=== PATIENT | female | born 1930 | race Caucasian/White ===

== ENCOUNTER → 2017-09-16 | Outpatient (CLI) | payer MEDICARE ==
[~2017-09-16] MED LIST: AMIO100T4 PO; AMIO200T42 PO; APIX2.5T PO; ASCO500T7 PO; ASCO500T8 PO; ATOR40TA PO; CALC1TAB PO; CALC1TAB76 PO; GLUC1TAB PO; GLUC500T11 PO; HYDR-3237 PO; LEVO137T2 PO; LEVO150C2 PO; LOSA100T6 PO; LOSA1TAB22 PO; MAGN400T7 PO; METF500T4 PO; METO100T5 PO; METO200T5 PO; METO25TA35 PO; PANT40TA5 PO; SPIR25TA3 PO
== END | disposition home or self-care (01) ==
LOC: WOUND 12:51
PROVIDERS: ATTEND Family Medicine
DX: E11.622 Type 2 diabetes mellitus with other skin ulcer (principal); L97.821 Non-pressure chronic ulcer of other part of left lower leg limited to breakdown of skin; I10 Essential (primary) hypertension; I48.91 Unspecified atrial fibrillation; E78.5 Hyperlipidemia, unspecified; E03.9 Hypothyroidism, unspecified; E66.9 Obesity, unspecified; Z72.89 Other problems related to lifestyle; Z95.0 Presence of cardiac pacemaker; Z85.3 Personal history of malignant neoplasm of breast
CPT/HCPCS: 10140; G0463; WOU0463

== ENCOUNTER → 2017-09-23 | Outpatient (CLI) | payer MEDICARE | END | disposition home or self-care (01) | LOC: WOUND 15:03 | PROVIDERS: ATTEND Family Medicine | DX: E11.622 Type 2 diabetes mellitus with other skin ulcer (principal); L97.821 Non-pressure chronic ulcer of other part of left lower leg limited to breakdown of skin; I48.91 Unspecified atrial fibrillation; E78.5 Hyperlipidemia, unspecified; E03.9 Hypothyroidism, unspecified; E66.9 Obesity, unspecified; I10 Essential (primary) hypertension; Z85.3 Personal history of malignant neoplasm of breast; Z95.0 Presence of cardiac pacemaker; Z68.41 Body mass index [BMI] 40.0-44.9, adult; Z72.89 Other problems related to lifestyle | CPT/HCPCS: G0463; WOU0463 ==

== ENCOUNTER → 2017-10-10 | Outpatient (CLI) | payer MEDICARE | END | disposition home or self-care (01) | LOC: WOUND 13:54 | PROVIDERS: ATTEND Internal Medicine | DX: E11.622 Type 2 diabetes mellitus with other skin ulcer (principal); L97.821 Non-pressure chronic ulcer of other part of left lower leg limited to breakdown of skin; E11.620 Type 2 diabetes mellitus with diabetic dermatitis; I10 Essential (primary) hypertension; E78.5 Hyperlipidemia, unspecified; I48.0 Paroxysmal atrial fibrillation; E66.9 Obesity, unspecified; Z85.3 Personal history of malignant neoplasm of breast; Z95.0 Presence of cardiac pacemaker; Z68.41 Body mass index [BMI] 40.0-44.9, adult; Z72.89 Other problems related to lifestyle; Z79.01 Long term (current) use of anticoagulants | CPT/HCPCS: G0463; WOU0463 ==

== ENCOUNTER → 2017-10-19 | Outpatient (CLI) | payer MEDICARE | END | disposition home or self-care (01) | LOC: CVU 12:53 | PROVIDERS: ATTEND Family Medicine | DX: I70.203 Unspecified atherosclerosis of native arteries of extremities, bilateral legs (principal); E11.621 Type 2 diabetes mellitus with foot ulcer; M79.89 Other specified soft tissue disorders; I48.91 Unspecified atrial fibrillation; I10 Essential (primary) hypertension; Z95.0 Presence of cardiac pacemaker | CPT/HCPCS: 93922; 93925; 93970 ==

== ENCOUNTER → 2017-12-06 | Outpatient (CLI) | payer MEDICARE ==
[~2017-12-06] MED LIST changes: +METO200T47 PO; -METO200T5 PO
== END | disposition home or self-care (01) ==
LOC: WOUND 14:34
PROVIDERS: ATTEND Nurse Practitioner Family
DX: E11.622 Type 2 diabetes mellitus with other skin ulcer (principal); L97.821 Non-pressure chronic ulcer of other part of left lower leg limited to breakdown of skin; I87.332 Chronic venous hypertension (idiopathic) with ulcer and inflammation of left lower extremity; E11.620 Type 2 diabetes mellitus with diabetic dermatitis; I10 Essential (primary) hypertension; E78.5 Hyperlipidemia, unspecified; I48.0 Paroxysmal atrial fibrillation; E66.9 Obesity, unspecified; Z85.3 Personal history of malignant neoplasm of breast; Z95.0 Presence of cardiac pacemaker; Z68.41 Body mass index [BMI] 40.0-44.9, adult; Z72.89 Other problems related to lifestyle; Z79.01 Long term (current) use of anticoagulants
CPT/HCPCS: 97597; G0463; WOU0463

== ENCOUNTER → 2017-12-23 | Outpatient (CLI) | payer MEDICARE | END | disposition home or self-care (01) | LOC: WOUND 14:02 | PROVIDERS: ATTEND Family Medicine | DX: I87.332 Chronic venous hypertension (idiopathic) with ulcer and inflammation of left lower extremity (principal); L97.821 Non-pressure chronic ulcer of other part of left lower leg limited to breakdown of skin; E11.622 Type 2 diabetes mellitus with other skin ulcer; L97.811 Non-pressure chronic ulcer of other part of right lower leg limited to breakdown of skin; I48.2 Chronic atrial fibrillation; I11.9 Hypertensive heart disease without heart failure; E78.5 Hyperlipidemia, unspecified; E66.9 Obesity, unspecified; I48.0 Paroxysmal atrial fibrillation; Z85.3 Personal history of malignant neoplasm of breast; Z68.41 Body mass index [BMI] 40.0-44.9, adult; Z72.89 Other problems related to lifestyle; Z95.0 Presence of cardiac pacemaker; Z79.01 Long term (current) use of anticoagulants | CPT/HCPCS: G0463; WOU0463 ==

== ENCOUNTER → 2017-12-30 | Outpatient (CLI) | payer MEDICARE | END | disposition home or self-care (01) | LOC: WOUND 14:07 | PROVIDERS: ATTEND Family Medicine | DX: I87.333 Chronic venous hypertension (idiopathic) with ulcer and inflammation of bilateral lower extremity (principal); L97.821 Non-pressure chronic ulcer of other part of left lower leg limited to breakdown of skin; E11.622 Type 2 diabetes mellitus with other skin ulcer; L97.811 Non-pressure chronic ulcer of other part of right lower leg limited to breakdown of skin; I48.2 Chronic atrial fibrillation; I11.9 Hypertensive heart disease without heart failure; E03.9 Hypothyroidism, unspecified; E78.5 Hyperlipidemia, unspecified; E66.9 Obesity, unspecified; Z79.01 Long term (current) use of anticoagulants; Z85.3 Personal history of malignant neoplasm of breast; Z95.0 Presence of cardiac pacemaker; Z98.49 Cataract extraction status, unspecified eye; Z68.41 Body mass index [BMI] 40.0-44.9, adult | CPT/HCPCS: G0463; WOU0463 ==

== ENCOUNTER → 2018-01-13 | Outpatient (CLI) | payer MEDICARE | END | disposition home or self-care (01) | LOC: WOUND 13:55 | PROVIDERS: ATTEND Family Medicine | DX: I87.332 Chronic venous hypertension (idiopathic) with ulcer and inflammation of left lower extremity (principal); L97.821 Non-pressure chronic ulcer of other part of left lower leg limited to breakdown of skin; I87.301 Chronic venous hypertension (idiopathic) without complications of right lower extremity; I48.2 Chronic atrial fibrillation; E78.5 Hyperlipidemia, unspecified; I11.9 Hypertensive heart disease without heart failure; E66.9 Obesity, unspecified; E11.36 Type 2 diabetes mellitus with diabetic cataract; Z79.01 Long term (current) use of anticoagulants; Z95.0 Presence of cardiac pacemaker; Z85.3 Personal history of malignant neoplasm of breast; Z68.41 Body mass index [BMI] 40.0-44.9, adult | CPT/HCPCS: G0463; WOU0463 ==

== ENCOUNTER 2018-09-04 15:04 | Inpatient (IN) | payer MEDICARE ==
[~2018-09-04] VITALS: Ht 167.6 cm; Wt 92.1 kg
[~2018-09-04 15:04] MED LIST changes: -LOSA100T6 PO; +LOSA100T7 PO; +METF500T17 PO; -METF500T4 PO; -SPIR25TA3 PO; +SPIR25TA5 PO
[2018-09-04] MEDS ORDERED: ASPIRIN 81 MG TABLET CHEW PO ONE (15:30)
[2018-09-04 15:58] LABS: ALANINE AMINOTRANSFERASE 205 U/L (12-78); ALBUMIN 3.6 g/dL (3.4-5.0); ANION GAP 8 mmol/L (5-15); CHLORIDE 101 mmol/L (98-107); CREATININE 1.57 mg/dL (0.55-1.02)
[2018-09-04 16:02] LABS: ALKALINE PHOSPHATASE 91 U/L (45-117); BILIRUBIN,TOTAL 0.9 mg/dL (0.2-1.0); TOTAL PROTEIN 7.2 g/dL (6.4-8.2)
[2018-09-04 16:08] LABS: BASOPHILS # (AUTO) 0.03 x10^3/uL (0-0.1); BASOPHILS % (AUTO) 0 % (0-1); EOSINOPHILS # (AUTO) 0.12 x10^3/uL (0-0.4); EOSINOPHILS % (AUTO) 1 % (1-7); LYMPHOCYTES # (AUTO) 1.53 x10^3/uL (1-3.4); LYMPHOCYTES % (AUTO) 18 % (22-44); MD NO; MEAN CORPUSCULAR HEMOGLOBIN 29.9 pg (27.0-34.8); MEAN CORPUSCULAR VOLUME 90.7 fL (80-100); MEAN PLATELET VOLUME 9.1 fL (7.4-10.4); MONOCYTES # (AUTO) 0.48 x10^3/uL (0.2-0.8); MONOCYTES % (AUTO) 6 % (2-9); NEUTROPHILS # (AUTO) 6.51 x10^3/uL (1.8-6.8); NEUTROPHILS % (AUTO) 75 % (42-75); PLATELET COUNT 351 x10^3/uL (130-400); RED BLOOD COUNT 4.76 x10^6/uL (3.82-5.3); RED CELL DISTRIBUTION WIDTH 14.7 % (9.6-15.2)
[2018-09-04] MEDS ORDERED: MAGN400T7 PO (16:18)
[2018-09-04] MEDS ORDERED: [UNRECOGNIZED DRUG - OTHER] PO (16:18)
[2018-09-04] MEDS ORDERED: PROP80CA3 PO (16:18)
[2018-09-04] MEDS ORDERED: DILTIAZEM 5 MG/ML, 5ML ONE (16:30)
[2018-09-04] MEDS ORDERED: DILTIAZEM 5 MG/ML, 5ML IVPush ONE (16:30)
[2018-09-04 17:04] LABS: FREE T4 (FREE THYROXINE) 1.49 ng/dL (0.76-1.46); THYROID STIMULATING HORMONE 10.7 mIU/L (0.358-3.740)
[2018-09-04] MEDS ORDERED: morphine SULFATE 10 MG/ML, 1ML IVPush PRN (17:30)
[2018-09-04] MEDS ORDERED: ONDANSETRON 2MG/ML, 2ML IVPush PRN (17:30)
[2018-09-04] MEDS ORDERED: hydrALAzine 20 MG/ML, 1ML IVPush PRN (17:30)
[2018-09-04] MEDS ORDERED: TEMAZEPAM 15 MG CAPSULE PO PRN (17:30)
[2018-09-04] MEDS ORDERED: ACETAMINOPHEN 325 MG TABLET PO PRN (17:30)
[2018-09-04 17:39] VITALS: BP 125/82
[2018-09-04] MEDS: INSULIN LISPRO 100 UNITS/ML, PEN SQ-INSULIN SCH ×2 (17:54→21:00)
[2018-09-04] MEDS: FUROSEMIDE 20 MG/2 ML IV SCH (17:55)
[2018-09-04] MEDS: DILTIAZEM 125 MG in SODIUM CHLORIDE 0.9% 100 ML IV SCH (18:26)
[2018-09-04] MEDS ORDERED: FLU VAC QS18-19(4YR UP)CEL/PF 0.5ML IM-VACC ONE (18:30)
[2018-09-04 18:51] LABS: HEMOGLOBIN A1C 7.5 % (4.2-6.3)
[2018-09-04 19:51] LABS: MICROSCOPIC AUTO
[2018-09-04 19:55] LABS: CULTURE INDICATED? YES
[2018-09-04 21:42] VITALS: BP 125/86
[2018-09-04] MEDS: MAGNESIUM OXIDE 400 MG TABLET PO SCH (21:51)
[2018-09-04] MEDS: ATORVASTATIN 40 MG TABLET PO SCH (21:51)
[2018-09-04] MEDS: APIXABAN 2.5 MG TABLET PO SCH (21:52)
[2018-09-04 22:30] LABS: TROPONIN I 0.074 ng/mL (0.000-0.045)
[2018-09-05 01:39] VITALS: BP 99/63
[2018-09-05 04:57] LABS: ALANINE AMINOTRANSFERASE 180 U/L (12-78); ALBUMIN 3.4 g/dL (3.4-5.0); ANION GAP 8 mmol/L (5-15); CALCIUM 8.7 mg/dL (8.5-10.1); CHLORIDE 101 mmol/L (98-107); CREATININE 1.54 mg/dL (0.55-1.02)
[2018-09-05 05:02] LABS: ALKALINE PHOSPHATASE 81 U/L (45-117); BILIRUBIN,TOTAL 0.7 mg/dL (0.2-1.0); TOTAL PROTEIN 6.5 g/dL (6.4-8.2); TROPONIN I 0.071 ng/mL (0.000-0.045)
[2018-09-05] MEDS: LEVOTHYROXINE 137 MCG TABLET PO SCH (06:04)
[2018-09-05] MEDS: DILTIAZEM 125 MG in SODIUM CHLORIDE 0.9% 100 ML IV SCH (06:04)
[2018-09-05 06:20] LABS: BASOPHILS # (AUTO) 0.04 x10^3/uL (0-0.1); BASOPHILS % (AUTO) 1 % (0-1); EOSINOPHILS # (AUTO) 0.23 x10^3/uL (0-0.4); EOSINOPHILS % (AUTO) 3 % (1-7); LYMPHOCYTES % (AUTO) 24 % (22-44); MD NO; MEAN CORPUSCULAR HEMOGLOBIN 29.7 pg (27.0-34.8); MEAN CORPUSCULAR HGB CONC 32.8 g/dL (32.4-35.8); MEAN CORPUSCULAR VOLUME 90.4 fL (80-100); MEAN PLATELET VOLUME 9.3 fL (7.4-10.4); MONOCYTES % (AUTO) 6 % (2-9); NEUTROPHILS # (AUTO) 5.14 x10^3/uL (1.8-6.8); NEUTROPHILS % (AUTO) 66 % (42-75); PLATELET COUNT 329 x10^3/uL (130-400); RED BLOOD COUNT 4.46 x10^6/uL (3.82-5.3); RED CELL DISTRIBUTION WIDTH 14.9 % (9.6-15.2)
[2018-09-05] MEDS: INSULIN LISPRO 100 UNITS/ML, PEN SQ-INSULIN SCH ×4 (06:56→21:29)
[2018-09-05 07:29] VITALS: BP 106/74
[2018-09-05] MEDS: LOSARTAN 50MG TABLET PO SCH (07:51)
[2018-09-05] MEDS: APIXABAN 2.5 MG TABLET PO SCH ×2 (07:51→19:28)
[2018-09-05] MEDS: MAGNESIUM OXIDE 400 MG TABLET PO SCH ×2 (07:51→21:22)
[2018-09-05] MEDS: POTASSIUM CHLORIDE 20 MEQ TAB.ER.PRT PO SCH (07:51)
[2018-09-05] MEDS: FUROSEMIDE 20 MG/2 ML IV SCH ×2 (07:52→17:30)
[2018-09-05] MEDS: DILTIAZEM 60 MG TABLET PO SCH ×3 (09:42→21:25)
[2018-09-05] MEDS: CEFTRIAXONE PMX 1GM/50ML 50 ML IV SCH (09:58)
[2018-09-05 12:18] VITALS: BP 107/66
[2018-09-05] MEDS ORDERED: POTASSIUM CHLORIDE 20 MEQ TAB.ER.PRT PO ONE (17:00)
[2018-09-05 17:29] VITALS: BP 116/75
[2018-09-05 20:23] VITALS: BP 94/61
[2018-09-05] MEDS: ATORVASTATIN 40 MG TABLET PO SCH (21:22)
[2018-09-05 21:25] VITALS: BP 109/74
[2018-09-06 01:38] VITALS: BP 109/75
[2018-09-06] MEDS: DILTIAZEM 60 MG TABLET PO SCH ×4 (02:01→22:57)
[2018-09-06] MEDS: LEVOTHYROXINE 137 MCG TABLET PO SCH (05:34)
[2018-09-06 05:48] LABS: ALBUMIN 3.3 g/dL (3.4-5.0); ANION GAP 7 mmol/L (5-15); CALCIUM 8.6 mg/dL (8.5-10.1); CHLORIDE 102 mmol/L (98-107)
[2018-09-06 05:52] LABS: ALANINE AMINOTRANSFERASE 177 U/L (12-78); ALKALINE PHOSPHATASE 76 U/L (45-117); BILIRUBIN,TOTAL 0.7 mg/dL (0.2-1.0); CREATININE 1.52 mg/dL (0.55-1.02); TOTAL PROTEIN 6.6 g/dL (6.4-8.2)
[2018-09-06] MEDS: INSULIN LISPRO 100 UNITS/ML, PEN SQ-INSULIN SCH ×4 (07:00→20:27)
[2018-09-06 07:08] VITALS: BP 101/67
[2018-09-06] MEDS: APIXABAN 2.5 MG TABLET PO SCH (07:42)
[2018-09-06] MEDS: MAGNESIUM OXIDE 400 MG TABLET PO SCH ×2 (07:42→20:01)
[2018-09-06] MEDS: PANTOPROZOLE 40MG TABLET PO SCH (07:42)
[2018-09-06] MEDS: POTASSIUM CHLORIDE 20 MEQ TAB.ER.PRT PO SCH ×2 (07:42→09:29)
[2018-09-06] MEDS: FUROSEMIDE 20 MG/2 ML IV SCH (07:42)
[2018-09-06] MEDS: CEFTRIAXONE PMX 1GM/50ML 50 ML IV SCH (09:29)
[2018-09-06] MEDS: LOSARTAN 50MG TABLET PO SCH (11:00)
[2018-09-06 12:03] VITALS: BP 95/60
[2018-09-06] MEDS ORDERED: DIGOXIN 0.25 MG TABLET PO SCH (12:30)
[2018-09-06 16:56] VITALS: BP 110/73
[2018-09-06] MEDS ORDERED: FUROSEMIDE 40 MG TABLET PO SCH (17:00)
[2018-09-06] MEDS: ATORVASTATIN 40 MG TABLET PO SCH (20:01)
[2018-09-06 20:30] VITALS: BP 93/66
[2018-09-07 01:54] VITALS: BP 101/62
[2018-09-07] MEDS: DILTIAZEM 60 MG TABLET PO SCH ×3 (05:02→18:02)
[2018-09-07] MEDS: LEVOTHYROXINE 137 MCG TABLET PO SCH (05:02)
[2018-09-07 05:14] LABS: ANION GAP 7 mmol/L (5-15); CALCIUM 8.9 mg/dL (8.5-10.1); CHLORIDE 102 mmol/L (98-107); CREATININE 1.49 mg/dL (0.55-1.02)
[2018-09-07] MEDS: INSULIN LISPRO 100 UNITS/ML, PEN SQ-INSULIN SCH ×4 (07:00→21:00)
[2018-09-07 07:23] VITALS: BP 109/76
[2018-09-07] MEDS ORDERED: MIDAZOLAM 1 MG/ML, 5ML ONE (07:55)
[2018-09-07] MEDS ORDERED: FENTANYL PF 100 MCG/2ML ONE (07:55)
[2018-09-07] MEDS: CEFTRIAXONE PMX 1GM/50ML 50 ML IV SCH (07:58)
[2018-09-07] MEDS ORDERED: LIDOCAINE 1%, 20ML ONE ×2 (10:33→10:34)
[2018-09-07] MEDS ORDERED: LIDOCAINE-MPF 1%, 5ML ONE (10:33)
[2018-09-07] MEDS: DIGOXIN 0.125 MG TABLET PO SCH (12:06)
[2018-09-07] MEDS: LOSARTAN 25MG TABLET PO SCH (12:06)
[2018-09-07] MEDS: FUROSEMIDE 40 MG TABLET PO SCH (12:06)
[2018-09-07] MEDS: POTASSIUM CHLORIDE 20 MEQ TAB.ER.PRT PO SCH (12:07)
[2018-09-07] MEDS: MAGNESIUM OXIDE 400 MG TABLET PO SCH ×2 (12:07→20:53)
[2018-09-07 12:08] VITALS: BP 126/72
[2018-09-07 16:29] VITALS: BP 106/72
[2018-09-07 19:59] VITALS: BP 101/69
[2018-09-07] MEDS: ATORVASTATIN 40 MG TABLET PO SCH (20:53)
[2018-09-08 00:19] VITALS: BP 114/78
[2018-09-08] MEDS: DILTIAZEM 60 MG TABLET PO SCH ×3 (00:23→12:43)
[2018-09-08 04:37] LABS: BASOPHILS # (AUTO) 0.04 x10^3/uL (0-0.1); BASOPHILS % (AUTO) 1 % (0-1); EOSINOPHILS % (AUTO) 5 % (1-7); LYMPHOCYTES # (AUTO) 1.59 x10^3/uL (1-3.4); LYMPHOCYTES % (AUTO) 19 % (22-44); MD NO; MEAN CORPUSCULAR HEMOGLOBIN 29.3 pg (27.0-34.8); MEAN CORPUSCULAR VOLUME 91.6 fL (80-100); MEAN PLATELET VOLUME 8.9 fL (7.4-10.4); MONOCYTES # (AUTO) 0.52 x10^3/uL (0.2-0.8); MONOCYTES % (AUTO) 6 % (2-9); NEUTROPHILS # (AUTO) 5.74 x10^3/uL (1.8-6.8); NEUTROPHILS % (AUTO) 69 % (42-75); PLATELET COUNT 297 x10^3/uL (130-400); RED BLOOD COUNT 4.51 x10^6/uL (3.82-5.3)
[2018-09-08 04:48] LABS: ALANINE AMINOTRANSFERASE 157 U/L (12-78); ALBUMIN 3.1 g/dL (3.4-5.0); ANION GAP 4 mmol/L (5-15); CALCIUM 8.6 mg/dL (8.5-10.1); CHLORIDE 103 mmol/L (98-107)
[2018-09-08 04:51] LABS: ALKALINE PHOSPHATASE 76 U/L (45-117); BILIRUBIN,TOTAL 0.5 mg/dL (0.2-1.0); CREATININE 1.34 mg/dL (0.55-1.02); TOTAL PROTEIN 6.3 g/dL (6.4-8.2)
[2018-09-08] MEDS: LEVOTHYROXINE 137 MCG TABLET PO SCH (06:05)
[2018-09-08] MEDS: INSULIN LISPRO 100 UNITS/ML, PEN SQ-INSULIN SCH ×2 (07:00→11:00)
[2018-09-08 07:07] VITALS: BP 102/69
[2018-09-08] MEDS: CEFTRIAXONE PMX 1GM/50ML 50 ML IV SCH (08:01)
[2018-09-08] MEDS: DIGOXIN 0.125 MG TABLET PO SCH (08:27)
[2018-09-08] MEDS: MAGNESIUM OXIDE 400 MG TABLET PO SCH (08:27)
[2018-09-08] MEDS: FUROSEMIDE 40 MG TABLET PO SCH (08:27)
[2018-09-08] MEDS: LOSARTAN 25MG TABLET PO SCH (08:27)
[2018-09-08] MEDS: POTASSIUM CHLORIDE 20 MEQ TAB.ER.PRT PO SCH (08:28)
[2018-09-08] MEDS: PANTOPROZOLE 40MG TABLET PO SCH (08:28)
[2018-09-08] MEDS ORDERED: ACET325T14 PO (09:53)
[2018-09-08] MEDS ORDERED: LEVO75TA5 PO (09:53)
[2018-09-08] MEDS ORDERED: DIGO125T PO (09:53)
[2018-09-08] MEDS ORDERED: FURO40TA6 PO (09:53)
[2018-09-08] MEDS ORDERED: DILT240C2 PO (09:53)
[2018-09-08] MEDS ORDERED: POTA20PA31 PO (09:53)
[2018-09-08 13:42] VITALS: BP 107/71
== END 2018-09-08 16:12 | DRG 273 ==
LOC: SUATTDRO 16:42 → ED 17:22 → 5SO 17:24
PROVIDERS: ADMIT Internal Medicine; ATTEND Internal Medicine
PROC: 02583ZZ Destruction of Conduction Mechanism, Percutaneous Approach (ICD-10-PCS; principal; 2018-09-07)
DX: I48.92 Unspecified atrial flutter (principal); I50.33 Acute on chronic diastolic (congestive) heart failure; I13.0 Hypertensive heart and chronic kidney disease with heart failure and stage 1 through stage 4 chronic kidney disease, or unspecified chronic kidney disease; J96.10 Chronic respiratory failure, unspecified whether with hypoxia or hypercapnia; N39.0 Urinary tract infection, site not specified; D68.69 Other thrombophilia; I44.2 Atrioventricular block, complete; E66.01 Morbid (severe) obesity due to excess calories; N18.3 Chronic kidney disease, stage 3 (moderate); K59.00 Constipation, unspecified; E78.5 Hyperlipidemia, unspecified; E11.22 Type 2 diabetes mellitus with diabetic chronic kidney disease; K21.9 Gastro-esophageal reflux disease without esophagitis; K76.1 Chronic passive congestion of liver; E03.9 Hypothyroidism, unspecified; Z79.01 Long term (current) use of anticoagulants; Z68.32 Body mass index [BMI] 32.0-32.9, adult; Z91.040 Latex allergy status; Z88.8 Allergy status to other drugs, medicaments and biological substances; Z91.048 Other nonmedicinal substance allergy status; Z79.890 Hormone replacement therapy; Z87.891 Personal history of nicotine dependence; Z99.81 Dependence on supplemental oxygen; Z90.89 Acquired absence of other organs
CPT/HCPCS: 36415; 71046; 76770; 80048; 80053; 80162; 81001; 82962; 83036; 83735; 83880; 84100; 84439; 84443; 84481; 84484; 85025; 87040; 87086; 90674; 93005; 93306; 93650; 99291; C1894; G0378; J0696; J2250; J3010; J3490; C2630; J1815; J1940

== ENCOUNTER 2018-11-29 15:27 | Inpatient (IN) | payer MEDICARE ==
[~2018-11-29] VITALS: Ht 167.6 cm; Wt 101.5 kg
[~2018-11-29 15:27] MED LIST changes: +ACET325T14 PO; +DIGO125T PO; +DILT240C2 PO; +FURO40TA6 PO; -GLUC1TAB PO; +LEVO75TA5 PO; +LOSA100T14 PO; -LOSA100T7 PO; +POTA20PA31 PO; +PROP80CA3 PO; +[UNRECOGNIZED DRUG - CODE] PO; +[UNRECOGNIZED DRUG - OTHER] PO
[2018-11-29] MEDS ORDERED: ASPIRIN 81 MG TABLET CHEW PO ONE (16:00)
[2018-11-29] MEDS ORDERED: ASPIRIN 81 MG TABLET CHEW ONE (16:14)
[2018-11-29 16:16] LABS: BASOPHILS # (AUTO) 0.05 x10^3/uL (0-0.1); BASOPHILS % (AUTO) 1 % (0-1); EOSINOPHILS # (AUTO) 0.23 x10^3/uL (0-0.4); EOSINOPHILS % (AUTO) 3 % (1-7); LYMPHOCYTES # (AUTO) 1.39 x10^3/uL (1-3.4); LYMPHOCYTES % (AUTO) 17 % (22-44); MD NO; MEAN CORPUSCULAR HEMOGLOBIN 29.4 pg (27.0-34.8); MEAN CORPUSCULAR HGB CONC 32.3 g/dL (32.4-35.8); MEAN PLATELET VOLUME 8.5 fL (7.4-10.4); MONOCYTES % (AUTO) 5 % (2-9); NEUTROPHILS # (AUTO) 6.15 x10^3/uL (1.8-6.8); NEUTROPHILS % (AUTO) 75 % (42-75); PLATELET COUNT 363 x10^3/uL (130-400); RED CELL DISTRIBUTION WIDTH 15.8 % (9.6-15.2)
--- NOTE | 2018-11-29 16:23 | NUR ---
DR ALVARADO AT BEDSIDE. PT ASSESSMENT REVIEWED, QUESTIONS ANSWERED. ORDERS REC'D.
[2018-11-29] MEDS ORDERED: SULF-169 PO (16:28)
[2018-11-29 16:30] LABS: ALBUMIN 3.7 g/dL (3.4-5.0); ANION GAP 5 mmol/L (5-15); CALCIUM 9.2 mg/dL (8.5-10.1); CHLORIDE 105 mmol/L (98-107); CREATININE 1.01 mg/dL (0.55-1.02)
[2018-11-29] MEDS ORDERED: FUROSEMIDE 40 MG/4 ML IV ONE (16:30)
[2018-11-29 17:09] LABS: MICROSCOPIC INDICATED
[2018-11-29 17:22] LABS: CULTURE INDICATED? NO
[2018-11-29] MEDS ORDERED: FUROSEMIDE 40 MG/4 ML ONE (17:28)
[2018-11-29] MEDS ORDERED: NITROGLYCERIN 0.4 MG BOTTLE (25 TABS) SL PRN (17:30)
[2018-11-29] MEDS ORDERED: GLUCAGON 1 MG IM PRN (17:30)
[2018-11-29] MEDS ORDERED: TRAZODONE 50MG TABLET PO PRN (17:30)
[2018-11-29] MEDS ORDERED: ONDANSETRON 2MG/ML, 2ML IVPush PRN (17:30)
[2018-11-29] MEDS ORDERED: DEXTROSE 50%, 50ML SYRINGE IVPush PRN (17:30)
[2018-11-29] MEDS: FUROSEMIDE 40 MG/4 ML IV SCH (17:30)
[2018-11-29] MEDS ORDERED: DEXTROSE 4 GM TAB.CHEW PO PRN (17:30)
[2018-11-29] MEDS: INSULIN LISPRO 100 UNITS/ML, PEN SQ-INSULIN SCH ×2 (17:30→21:00)
[2018-11-29] MEDS ORDERED: NITROGLYCERIN 0.4 MG/SPRAY SL PRN (17:30)
--- NOTE | 2018-11-29 17:54 | NUR ---
PURE WICK CATH PLACED. PT TOLLERATED WELL.
--- NOTE | 2018-11-29 17:57 | NUR ---
DIET TRAY ORDERED AND DIET OFFICE NOTIFIED
--- NOTE | 2018-11-29 18:55 | NUR ---
PT CONSUMED 50% OF HER DINNER. PT TRANSFERED TO HOSPITAL BED VIA SLIDE BOARD. WAFFLE AIR MATTRESS ON BED AND PUMPED TO 32 PUMPS. PT REQUESTED THAT MATTRESS NOT BE INFLATTED MORE THAN 32 PUMPS STATING "IT'S TOO LUMPY" EXTENTION TUBBING PLACED ON 02 FOR PT COMFORT. BED PUT INTO CHAIR POSITION PER PT REQUEST. ADDITIONAL PILLOWS PROVIDED PER PT REQUEST. CALL LIGHT W/I REACH, DAUGHTER AT BEDSIDE.
[2018-11-29] MEDS: ATORVASTATIN 40 MG TABLET PO SCH (22:42)
[2018-11-29] MEDS: SULFAMETH./TRIMETHOPRIM DS 800MG/160MG TABLET PO SCH (22:42)
[2018-11-29] MEDS: APIXABAN 2.5 MG TABLET PO SCH (22:43)
[2018-11-29] MEDS: SODIUM CHLORIDE FLUSH 10ML SYR IVF SCH (22:43)
[2018-11-29 22:54] VITALS: BP 156/82
[2018-11-29 23:01] LABS: TROPONIN I 0.103 ng/mL (0.000-0.045)
[2018-11-30 01:09] VITALS: BP 133/74
[2018-11-30 06:01] LABS: BASOPHILS # (AUTO) 0.05 x10^3/uL (0-0.1); BASOPHILS % (AUTO) 1 % (0-1); EOSINOPHILS # (AUTO) 0.29 x10^3/uL (0-0.4); EOSINOPHILS % (AUTO) 4 % (1-7); LYMPHOCYTES # (AUTO) 1.95 x10^3/uL (1-3.4); LYMPHOCYTES % (AUTO) 24 % (22-44); MD NO; MEAN CORPUSCULAR HEMOGLOBIN 29.1 pg (27.0-34.8); MEAN CORPUSCULAR HGB CONC 32.2 g/dL (32.4-35.8); MEAN CORPUSCULAR VOLUME 90.3 fL (80-100); MEAN PLATELET VOLUME 8.2 fL (7.4-10.4); MONOCYTES # (AUTO) 0.53 x10^3/uL (0.2-0.8); MONOCYTES % (AUTO) 7 % (2-9); NEUTROPHILS # (AUTO) 5.42 x10^3/uL (1.8-6.8); NEUTROPHILS % (AUTO) 66 % (42-75); PLATELET COUNT 346 x10^3/uL (130-400); RED BLOOD COUNT 4.33 x10^6/uL (3.82-5.3); RED CELL DISTRIBUTION WIDTH 15.9 % (9.6-15.2)
[2018-11-30 06:13] LABS: ANION GAP 5 mmol/L (5-15); CALCIUM 8.9 mg/dL (8.5-10.1); CHLORIDE 103 mmol/L (98-107)
[2018-11-30 06:21] LABS: CREATININE 1.01 mg/dL (0.55-1.02); TROPONIN I 0.113 ng/mL (0.000-0.045)
[2018-11-30 06:46] LABS: HEMOGLOBIN A1C 6.2 % (4.2-6.3)
[2018-11-30 07:00] VITALS: BP 146/84
[2018-11-30] MEDS: INSULIN LISPRO 100 UNITS/ML, PEN SQ-INSULIN SCH ×4 (07:33→21:00)
[2018-11-30] MEDS: SULFAMETH./TRIMETHOPRIM DS 800MG/160MG TABLET PO SCH ×2 (08:38→21:13)
[2018-11-30] MEDS: APIXABAN 2.5 MG TABLET PO SCH ×2 (08:38→21:13)
[2018-11-30] MEDS: FUROSEMIDE 40 MG/4 ML IV SCH ×2 (08:39→17:34)
[2018-11-30] MEDS: SODIUM CHLORIDE FLUSH 10ML SYR IVF SCH ×2 (08:39→21:13)
[2018-11-30] MEDS ORDERED: LEVOTHYROXINE 150 MCG TABLET PO SCH (09:00)
[2018-11-30 11:38] LABS: TROPONIN I 0.117 ng/mL (0.000-0.045)
[2018-11-30 12:45] VITALS: BP 139/87
[2018-11-30 17:46] LABS: TROPONIN I 0.112 ng/mL (0.000-0.045)
[2018-11-30 20:00] VITALS: BP 156/92
[2018-11-30] MEDS: ATORVASTATIN 40 MG TABLET PO SCH (21:13)
[2018-11-30] MEDS: ACETAMINOPHEN 325 MG TABLET PO PRN (21:16)
[2018-12-01 01:30] VITALS: BP 135/84
[2018-12-01 05:22] LABS: ANION GAP 3 mmol/L (5-15); CALCIUM 8.7 mg/dL (8.5-10.1); CHLORIDE 103 mmol/L (98-107)
[2018-12-01] MEDS: LEVOTHYROXINE 175 MCG TABLET PO SCH (05:31)
[2018-12-01] MEDS ORDERED: LEVOTHYROXINE 150 MCG TABLET PO SCH (06:00)
[2018-12-01 06:50] VITALS: BP 127/81
[2018-12-01] MEDS: INSULIN LISPRO 100 UNITS/ML, PEN SQ-INSULIN SCH ×4 (07:00→23:00)
[2018-12-01] MEDS ORDERED: FUROSEMIDE 20 MG/2 ML IV ONE (09:30)
[2018-12-01] MEDS: SULFAMETH./TRIMETHOPRIM DS 800MG/160MG TABLET PO SCH (09:57)
[2018-12-01] MEDS: APIXABAN 2.5 MG TABLET PO SCH ×2 (09:57→20:28)
[2018-12-01] MEDS: SODIUM CHLORIDE FLUSH 10ML SYR IVF SCH ×2 (09:58→20:29)
[2018-12-01 14:10] VITALS: BP 126/74
[2018-12-01] MEDS: FUROSEMIDE 40 MG/4 ML IV SCH (18:19)
[2018-12-01 18:49] VITALS: BP 139/76
[2018-12-01] MEDS: ATORVASTATIN 40 MG TABLET PO SCH (20:28)
[2018-12-01] MEDS: ACETAMINOPHEN 325 MG TABLET PO PRN (20:28)
[2018-12-01] MEDS ORDERED: SULFAMETH./TRIMETHOPRIM DS 800MG/160MG TABLET PO SCH (21:00)
[2018-12-02] MEDS: ACETAMINOPHEN 325 MG TABLET PO PRN ×2 (00:10→23:03)
[2018-12-02 01:23] VITALS: BP 134/69
[2018-12-02 05:13] LABS: BASOPHILS # (AUTO) 0.04 x10^3/uL (0-0.1); BASOPHILS % (AUTO) 0 % (0-1); EOSINOPHILS # (AUTO) 0.82 x10^3/uL (0-0.4); EOSINOPHILS % (AUTO) 9 % (1-7); LYMPHOCYTES # (AUTO) 1.72 x10^3/uL (1-3.4); LYMPHOCYTES % (AUTO) 20 % (22-44); MD NO; MEAN CORPUSCULAR HEMOGLOBIN 29.9 pg (27.0-34.8); MEAN CORPUSCULAR HGB CONC 32.6 g/dL (32.4-35.8); MEAN CORPUSCULAR VOLUME 91.6 fL (80-100); MEAN PLATELET VOLUME 8.7 fL (7.4-10.4); MONOCYTES # (AUTO) 0.64 x10^3/uL (0.2-0.8); MONOCYTES % (AUTO) 7 % (2-9); NEUTROPHILS # (AUTO) 5.53 x10^3/uL (1.8-6.8); NEUTROPHILS % (AUTO) 63 % (42-75); PLATELET COUNT 323 x10^3/uL (130-400); RED BLOOD COUNT 4.39 x10^6/uL (3.82-5.3); RED CELL DISTRIBUTION WIDTH 15.6 % (9.6-15.2)
[2018-12-02 05:16] LABS: ANION GAP 3 mmol/L (5-15); CALCIUM 8.4 mg/dL (8.5-10.1); CHLORIDE 102 mmol/L (98-107); CREATININE 1.55 mg/dL (0.55-1.02)
[2018-12-02] MEDS: LEVOTHYROXINE 175 MCG TABLET PO SCH (06:28)
[2018-12-02] MEDS: INSULIN LISPRO 100 UNITS/ML, PEN SQ-INSULIN SCH ×4 (06:55→20:07)
[2018-12-02 07:04] VITALS: BP 121/73
[2018-12-02] MEDS: APIXABAN 2.5 MG TABLET PO SCH ×2 (07:43→20:06)
[2018-12-02] MEDS: SODIUM CHLORIDE FLUSH 10ML SYR IVF SCH ×2 (07:43→20:06)
[2018-12-02] MEDS ORDERED: REGADENOSON 0.4 MG/5 ML SYRINGE ONE (08:21)
[2018-12-02] MEDS: FUROSEMIDE 40 MG/4 ML IV SCH (09:28)
[2018-12-02] MEDS ORDERED: FUROSEMIDE 100 MG/10 ML IV ONE (09:30)
[2018-12-02] MEDS: SPIRONOLACTONE 25 MG TABLET PO SCH (11:11)
[2018-12-02 13:46] VITALS: BP 138/77
[2018-12-02 19:56] VITALS: BP 151/76
[2018-12-02] MEDS: ATORVASTATIN 40 MG TABLET PO SCH (20:06)
[2018-12-03 00:42] VITALS: BP 127/78
[2018-12-03 05:21] LABS: CHLORIDE 101 mmol/L (98-107)
[2018-12-03] MEDS: LEVOTHYROXINE 175 MCG TABLET PO SCH (05:23)
[2018-12-03 05:26] LABS: ANION GAP 5 mmol/L (5-15); CALCIUM 8.6 mg/dL (8.5-10.1); CREATININE 1.94 mg/dL (0.55-1.02)
[2018-12-03] MEDS: INSULIN LISPRO 100 UNITS/ML, PEN SQ-INSULIN SCH ×4 (07:00→20:38)
[2018-12-03 07:10] VITALS: BP 127/75
[2018-12-03] MEDS ORDERED: FUROSEMIDE 100 MG/10 ML IV ONE (08:30)
[2018-12-03] MEDS ORDERED: FUROSEMIDE 40 MG/4 ML ONE (08:49)
[2018-12-03] MEDS: SPIRONOLACTONE 25 MG TABLET PO SCH (09:58)
[2018-12-03] MEDS: APIXABAN 2.5 MG TABLET PO SCH ×2 (09:58→20:38)
[2018-12-03] MEDS: SODIUM CHLORIDE FLUSH 10ML SYR IVF SCH ×2 (09:58→20:38)
[2018-12-03 15:07] VITALS: BP 124/80
[2018-12-03 19:21] VITALS: BP 123/79
[2018-12-03] MEDS: ATORVASTATIN 40 MG TABLET PO SCH (20:38)
[2018-12-04 01:10] VITALS: BP 123/75
[2018-12-04 05:11] LABS: ANION GAP 5 mmol/L (5-15); CALCIUM 8.8 mg/dL (8.5-10.1); CHLORIDE 102 mmol/L (98-107)
[2018-12-04 05:18] LABS: CREATININE 2.09 mg/dL (0.55-1.02)
[2018-12-04] MEDS: LEVOTHYROXINE 175 MCG TABLET PO SCH (06:19)
[2018-12-04 06:51] VITALS: BP 119/76
[2018-12-04] MEDS: INSULIN LISPRO 100 UNITS/ML, PEN SQ-INSULIN SCH ×4 (07:00→20:23)
[2018-12-04] MEDS: SODIUM CHLORIDE FLUSH 10ML SYR IVF SCH ×2 (08:35→20:15)
[2018-12-04] MEDS ORDERED: REGADENOSON 0.4 MG/5 ML SYRINGE ONE (11:41)
[2018-12-04] MEDS: APIXABAN 2.5 MG TABLET PO SCH ×2 (13:00→20:14)
[2018-12-04 14:12] VITALS: BP 121/72
[2018-12-04] MEDS: CARVEDILOL 6.25 MG TABLET PO SCH (18:00)
[2018-12-04 19:55] VITALS: BP 110/73
[2018-12-04] MEDS: ATORVASTATIN 40 MG TABLET PO SCH (20:14)
[2018-12-05 02:36] VITALS: BP 123/78
[2018-12-05 04:55] LABS: BASOPHILS # (AUTO) 0.03 x10^3/uL (0-0.1); BASOPHILS % (AUTO) 0 % (0-1); EOSINOPHILS # (AUTO) 0.76 x10^3/uL (0-0.4); EOSINOPHILS % (AUTO) 10 % (1-7); LYMPHOCYTES # (AUTO) 1.66 x10^3/uL (1-3.4); LYMPHOCYTES % (AUTO) 21 % (22-44); MD NO; MEAN CORPUSCULAR HEMOGLOBIN 29.9 pg (27.0-34.8); MEAN CORPUSCULAR HGB CONC 32.9 g/dL (32.4-35.8); MEAN CORPUSCULAR VOLUME 90.8 fL (80-100); MEAN PLATELET VOLUME 8.6 fL (7.4-10.4); MONOCYTES # (AUTO) 0.61 x10^3/uL (0.2-0.8); MONOCYTES % (AUTO) 8 % (2-9); NEUTROPHILS # (AUTO) 4.78 x10^3/uL (1.8-6.8); NEUTROPHILS % (AUTO) 61 % (42-75); PLATELET COUNT 323 x10^3/uL (130-400); RED BLOOD COUNT 4.12 x10^6/uL (3.82-5.3); RED CELL DISTRIBUTION WIDTH 15.2 % (9.6-15.2)
[2018-12-05 05:11] LABS: ANION GAP 4 mmol/L (5-15); CALCIUM 8.8 mg/dL (8.5-10.1); CHLORIDE 103 mmol/L (98-107)
[2018-12-05 05:12] LABS: CREATININE 1.88 mg/dL (0.55-1.02)
[2018-12-05] MEDS: LEVOTHYROXINE 175 MCG TABLET PO SCH (05:27)
[2018-12-05] MEDS: CARVEDILOL 6.25 MG TABLET PO SCH (05:28)
[2018-12-05] MEDS: INSULIN LISPRO 100 UNITS/ML, PEN SQ-INSULIN SCH ×2 (07:00→11:00)
[2018-12-05 08:25] VITALS: BP 115/71
[2018-12-05] MEDS: APIXABAN 2.5 MG TABLET PO SCH (08:43)
[2018-12-05] MEDS: SODIUM CHLORIDE FLUSH 10ML SYR IVF SCH (08:44)
[2018-12-05] MEDS ORDERED: CARV6.2512 PO (10:58)
[2018-12-05] MEDS ORDERED: LEVO175T2 PO (10:58)
[2018-12-05] MEDS ORDERED: SPIR25TA PO (11:00)
[2018-12-05 12:08] VITALS: BP 117/77
== END 2018-12-05 15:09 | DRG 291 ==
LOC: ED 16:54 → EDIP 16:55 → ED 16:57 → 5SO 20:14
PROVIDERS: ADMIT Hospitalist; ATTEND Hospitalist
DX: I13.0 Hypertensive heart and chronic kidney disease with heart failure and stage 1 through stage 4 chronic kidney disease, or unspecified chronic kidney disease (principal); I50.43 Acute on chronic combined systolic (congestive) and diastolic (congestive) heart failure; J96.10 Chronic respiratory failure, unspecified whether with hypoxia or hypercapnia; D68.69 Other thrombophilia; N17.9 Acute kidney failure, unspecified; E03.9 Hypothyroidism, unspecified; E11.22 Type 2 diabetes mellitus with diabetic chronic kidney disease; E66.9 Obesity, unspecified; E78.5 Hyperlipidemia, unspecified; I25.10 Atherosclerotic heart disease of native coronary artery without angina pectoris; I25.5 Ischemic cardiomyopathy; I34.0 Nonrheumatic mitral (valve) insufficiency; I48.91 Unspecified atrial fibrillation; K21.9 Gastro-esophageal reflux disease without esophagitis; E66.01 Morbid (severe) obesity due to excess calories; N18.3 Chronic kidney disease, stage 3 (moderate); Z79.01 Long term (current) use of anticoagulants; Z79.84 Long term (current) use of oral hypoglycemic drugs; Z79.899 Other long term (current) drug therapy; Z99.81 Dependence on supplemental oxygen; Z95.0 Presence of cardiac pacemaker; Z87.891 Personal history of nicotine dependence
CPT/HCPCS: 36415; 71046; 78452; 80048; 81001; 82040; 82962; 83036; 83735; 83880; 84443; 84484; 85025; 93005; 93017; 93922; 96374; 99285; C8929; G0378; J1940; J2785; Q9957; A9502; C9898; J1815